=== PATIENT | female | born 1940 | race Caucasian/White ===

== ENCOUNTER → 2018-03-12 | Day surgery (SDC) | payer OTHER ==
[2018-03-12 11:47] LABS: BASO % 0.8 % (0-2.0); EOS % 2.6 % (0-4.5); HEMATOCRIT 41.6 % (32.4-45.2); HEMOGLOBIN 13.9 GM/dL (10.7-15.3); LYMPH % 12.9 % (8-40); MCH 31.1 pg (25.7-33.7); MCHC 33.4 g/dl (32.0-36.0); MEAN CELL VOLUME 93.3 fl (80-96); MEAN PLT VOLUME 7.9 fl (7.5-11.1); NEUT % 76.7 % (42.8-82.8); PLATELET COUNT 313 K/MM3 (134-434); RBC 4.46 M/mm3 (3.60-5.2); RDW 13.7 % (11.6-15.6); WHITE BLOOD COUNT 9.2 K/mm3 (4.0-10.0)
[2018-03-12 12:03] LABS: INR 0.98 (0.82-1.09); PROTHROMBIN TIME (PATIENT) 11.1 SEC (9.7-13.0)
--- NOTE | 2018-03-17 17:31 | PATH ---
Surgical Pathology Report Patient Name: PANCHO ROSS [facility]. Rec. #: [id number] /Age/Gender: 1940 (Age: 77) / F Account: [id number] Location: Taken: 03/12/2018 Received: 03/12/2018 Reported: 03/17/2018 Physicians: Partha Mckeon M.D. Ash Pearl M.D. 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 COMMENT: The differential diagnosis includes mantle cell lymphoma and a variant of chronic lymphocytic leukemia/small lymphocytic lymphoma. Correlate with pending FISH study for BCL-1. See [facility] report ([id number]) for additional details. This case was discuss with Dr. Pearl on March,. Electronically Signed Lorena Grimm M.D. Gross Description Received in formalin labeled "left neck lymph node," are 3 arias, cylindrical portions of soft tissue ranging from 1.1-1.4 cm in length and averaging 0.1 cm in diameter. The specimen is submitted in toto in one cassette. Additional tissue is received in RPMI solution which is sent for flow cytometry. /03/12/2018 saudi03/12/2018
== END | disposition home or self-care (01) ==
LOC: JRADIR 11:05
PROVIDERS: ATTEND Otolaryngology
PROC: 07D23ZX Extraction of Left Neck Lymphatic, Percutaneous Approach, Diagnostic (ICD-10-PCS; principal; 2018-03-12)
DX: C85.11 Unspecified B-cell lymphoma, lymph nodes of head, face, and neck (principal)
CPT/HCPCS: 36415; 76942-TC; 85025; 85610; 88307-TC